=== PATIENT | female | born 1975 ===

== ENCOUNTER 2022-07-19 14:34 | Emergency (ER) | payer BC ==
[2022-07-19] MEDS ORDERED: Albuterol/Ipratropium 3.0-0.5 MG/3 ML Neb Soln NEB ONE ×2 (14:46→16:43)
[2022-07-19] MEDS ORDERED: Albuterol/Ipratropium 3.0-0.5 MG/3 ML Neb Soln ONE (14:46)
[2022-07-19 15:39] LABS: CORONAVIRUS COVID-19 NAA NEGATIVE (NEGATIVE); RESPIRATORY SYNCYTIAL VIR NAA NEGATIVE (NEGATIVE)
[2022-07-19 15:43] LABS: ANION GAP 5.8 meq/L (7-15); CHLORIDE,CL 107 mmol/L (98-107); SODIUM,NA 141 mmol/L (136-145)
[2022-07-19 15:44] LABS: ESTIMATED GFR 111 mL/min (>=60)
[2022-07-19] MEDS ORDERED: Take Home: Albuterol/Ipratropium 3.0-0.5 MG/3 ML Neb Soln, 4 Neb Pack NEB ONE (17:19)
== END 2022-07-19 17:44 | disposition home or self-care (01) ==
LOC: LL.ED 14:34
DX: J40 Bronchitis, not specified as acute or chronic (principal); Z88.0 Allergy status to penicillin; Z20.822 Contact with and (suspected) exposure to COVID-19
CPT/HCPCS: 0241U; 36415; 71046; 80053; 83605; 83880; 85025; 86140; 94640; 99285; A9270-GY; J7620-GY